=== PATIENT | male | born 1960 | race Two or more races ===

== ENCOUNTER 2017-03-17 21:45 | Inpatient (IN) | payer MEDICARE, MEDICAID ==
[~2017-03-17] VITALS: Ht 167.6 cm; Wt 74.1 kg
[2017-03-17 21:55] VITALS: BP 233/99
--- NOTE | 2017-03-17 22:04 | Emergency Room Report ---
History of Present Illness General Chief Complaint: Hypertension Source: Patient Present Illness HPI Patient presents with complaints of headache Patient finished his 3 hours of dialysis After that his blood pressure remained elevated and was sent to the emergency room Patient denies any chest pain or shortness of breath He reports his blood pressure has been high since yesterday He does hold his blood pressure medicine prior to dialysis Denies any flank pain The headache is somewhat diffuse and nonspecific denies any visual changes denies any neck pain or photophobia Allergies: Coded Allergies: ASPIRIN (Verified Allergy, Unknown, 03/17/17) Patient History Past Medical History: see triage record Past Surgical History: none Reviewed Nursing Documentation: PMH: Agreed, PSxH: Agreed Nursing Documentation-PMH Hx Hypertension: Yes - ESRD Hx Diabetes: Yes Review of Systems All Other Systems: negative except mentioned in HPI Physical Exam Vital Signs Date Time Temp Pulse Resp B/P Pulse Ox O2 Delivery O2 Flow Rate FiO2 03/17/17 21:38 96.6 68 16 225/98 100 Room Air Sp02 EP Interpretation: reviewed, normal General Appearance: well appearing, no apparent distress Head: normocephalic, atraumatic Eyes: bilateral eye EOMI, bilateral eye PERRL ENT: hearing grossly normal, normal pharynx, TMs + canals normal, uvula midline Neck: full range of motion, supple, no meningismus, no bony tend Respiratory: lungs clear, normal breath sounds, no rhonchi, no respiratory distress, no retraction, no accessory muscle use Cardiovascular #1: normal peripheral pulses, regular rate, rhythm, no edema, no gallop, no JVD, no murmur Gastrointestinal: normal bowel sounds, non tender, soft, no mass, no organomegaly, non-distended, no guarding, no hernia, no pulsatile mass, no rebound Genitourinary: no CVA tenderness Musculoskeletal: normal inspection Neurologic: oriented x3, responsive, cotton picker III-XII nml as tested, motor strength/ tone normal, sensory intact Psychiatric: mood/affect normal Skin: normal color, no rash, warm/dry, palpation normal, other - AV shunt left forearm Lymphatic: normal inspection, no adenopathy Procedures Critical Care Time Critical Care Time 40 minutes for multiple re\re evaluations Continued inpatient emergency room intervention Dangerous blood pressure, with possible end organ injury Not including any procedural time/ Medical Decision Making Diagnostic Impression: Primary Impression: Hypertensive emergency ER Course Patient is a fairly complex patient with multiple differential to consideration including but not limited to cardiac cardiopulmonary and vascular emergencies Has no obvious signs of any focal deficit CT imaging is held initially Patient did present dangerously hypertensive this required multiple interventions in the emergency room We were able to improve the blood pressure And patient otherwise admitted for continued inpatient care Labs Test 03/17/17 22:02 White Blood Count 5.6 K/UL (4.8-10.8) Red Blood Count 3.83 M/UL (4.70-6.10) Hemoglobin 12.3 G/DL (14.2-18.0) Hematocrit 37.5 % (42.0-52.0) Mean Corpuscular Volume 98 FL (80-99) Mean Corpuscular Hemoglobin 32.0 PG (27.0-31.0) Mean Corpuscular Hemoglobin Concent 32.7 G/DL (32.0-36.0) Red Cell Distribution Width 13.8 % (11.6-14.8) Platelet Count 206 K/UL (150-450) Mean Platelet Volume 5.9 FL (6.5-10.1) Neutrophils (%) (Auto) 69.0 % (45.0-75.0) Lymphocytes (%) (Auto) 19.0 % (20.0-45.0) Monocytes (%) (Auto) 7.7 % (1.0-10.0) Eosinophils (%) (Auto) 3.0 % (0.0-3.0) Basophils (%) (Auto) 1.3 % (0.0-2.0) Prothrombin Time 10.1 SEC (9.30-11.50) Prothromb Time International Ratio 1.0 (0.9-1.1) Activated Partial Thromboplast Time 31 SEC (23-33) Sodium Level 139 mEQ/L (135-145) Potassium Level 3.8 mEQ/L (3.4-4.9) Chloride Level 92 mEQ/L (98-107) Carbon Dioxide Level 30 mEQ/L (20-30) Anion Gap 17 (5-15) Blood Urea Nitrogen 27 mg/dL (7-23) Creatinine 5.2 mg/dL (0.7-1.2) Estimat Glomerular Filtration Rate 11.5 mL/min (>60) Glucose Level 106 mg/dL (74-106) Calcium Level 9.6 mg/dL (8.6-10.2) Total Bilirubin 0.5 mg/dL (0.0-1.2) Aspartate Amino Transf (AST/SGOT) 11 U/L (5-40) Alanine Aminotransferase (ALT/SGPT) 8 U/L (3-41) Alkaline Phosphatase 72 U/L (40-129) Total Creatine Kinase 102 U/L (38-174) Creatine Kinase MB 2.5 ng/mL (< 6.7) Creatine Kinase MB Relative Index 2.4 Troponin I < 0.30 ng/mL (<=0.30) Total Protein 8.3 g/dL (6.6-8.7) Albumin 5.2 g/dL (3.5-5.2) Globulin 3.1 g/dL Albumin/Globulin Ratio 1.6 (1.0-2.7) EKG Diagnostic Results Rate: normal Rhythm: NSR ST Segments: other - Nonspecific ST, T wave changes interventricular block, Rhythm Strip Diag. Results EP Interpretation: yes Rate: 77 Rhythm: NSR, no PVC's, no ectopy Chest X-Ray Diagnostic Results Chest X-Ray Ordered: Yes # of Views/Limited/Complete: 1 View Interpretation: no consolidation, no effusion, no pneumothorax, other - Cardiomegaly, left lower lobe haziness Indication: Chest Pain Impression: No acute disease Date Electronically Signed: Mar 18, 2017 Time Electronically Signed: 03:44 Interpreting ER Physician: Dr reed Last Vital Signs Date Time Temp Pulse Resp B/P Pulse Ox O2 Delivery O2 Flow Rate FiO2 03/17/17 21:38 96.6 68 16 225/98 100 Room Air Status: improved Disposition: ADMITTED INPATIENT Condition: Serious KELLEY REED D.O. Mar 17, 2017 22:04
[2017-03-17 22:19] LABS: BASOPHILS % (AUTO) 1.3 % (0.0-2.0); MEAN CORPUSCULAR HGB CONC 32.7 G/DL (32.0-36.0); MEAN CORPUSCULAR VOLUME 98 FL (80-99); MEAN PLATELET VOLUME 5.9 FL (6.5-10.1); MONOCYTES % (AUTO) 7.7 % (1.0-10.0); PLATELET COUNT 206 K/UL (150-450); RED BLOOD COUNT 3.83 M/UL (4.70-6.10); RED CELL DISTRIBUTION WIDTH 13.8 % (11.6-14.8); WHITE BLOOD COUNT 5.6 K/UL (4.8-10.8)
[2017-03-17 22:33] LABS: TROPONIN I < 0.30 ng/mL (<=0.30)
[2017-03-17 22:34] LABS: PROTHROMBIN TIME 10.1 SEC (9.30-11.50)
[2017-03-17 22:41] LABS: ALBUMIN/GLOBULIN RATIO 1.6 (1.0-2.7); CALCIUM 9.6 mg/dL (8.6-10.2); CREATININE 5.2 mg/dL (0.7-1.2); GLOMERULAR FILTRATION RATE 11.5 mL/min (>60); POTASSIUM 3.8 mEQ/L (3.4-4.9); TOTAL PROTEIN 8.3 g/dL (6.6-8.7)
[2017-03-17 22:51] LABS: CKMB 2.5 ng/mL (< 6.7)
[2017-03-17] MEDS ORDERED: FOLIC ACID1 MG ORAL (23:00)
[2017-03-17] MEDS ORDERED: FUROSEMIDE40 MG ORAL (23:00)
[2017-03-17] MEDS ORDERED: Miralax 17gm pkt ORAL PRN (23:00)
[2017-03-17] MEDS ORDERED: DuoNeb 0.5-3(2.5)mg/3ml neb HHN PRN (23:00)
[2017-03-17] MEDS ORDERED: LABETALOL HCL100 MG ORAL (23:00)
[2017-03-17] MEDS ORDERED: AMLODIPINE BESY10 MG ORAL (23:00)
[2017-03-17] MEDS ORDERED: RENVELA0.8 GM ORAL (23:00)
[2017-03-17] MEDS ORDERED: CALCIUM ACETAT667 M1 PO (23:00)
[2017-03-17] MEDS ORDERED: Enalaprilat 2.5mg/2ml Inj IV PRN (23:00)
[2017-03-17 23:03] VITALS: BP 236/99
[2017-03-17] MEDS ORDERED: Nitroglycerin 2% oint pkt TOPIC ONE (23:45)
[2017-03-17] MEDS ORDERED: Acetaminophen 500mg (ES) tab ORAL ONE (23:45)
[2017-03-18] VITALS (7 sets, daily range): BP systolic 139–206; BP diastolic 74–107
[2017-03-18 07:25] LABS: BASOPHILS % (AUTO) 1.7 % (0.0-2.0); EOSINOPHILS % (AUTO) 2.2 % (0.0-3.0); LYMPHOCYTES % (AUTO) 19.8 % (20.0-45.0); MEAN CORPUSCULAR HGB CONC 32.7 G/DL (32.0-36.0); MEAN CORPUSCULAR VOLUME 98 FL (80-99); MEAN PLATELET VOLUME 6.2 FL (6.5-10.1); MONOCYTES % (AUTO) 10.7 % (1.0-10.0); NEUTROPHILS % (AUTO) 65.7 % (45.0-75.0); PLATELET COUNT 219 K/UL (150-450); RED BLOOD COUNT 3.81 M/UL (4.70-6.10); RED CELL DISTRIBUTION WIDTH 13.6 % (11.6-14.8); WHITE BLOOD COUNT 5.8 K/UL (4.8-10.8)
[2017-03-18 07:53] LABS: CALCIUM 8.9 mg/dL (8.6-10.2); CREATININE 6.7 mg/dL (0.7-1.2); GLOMERULAR FILTRATION RATE 8.5 mL/min (>60); PHOSPHORUS 4.4 mg/dL (2.5-4.8); POTASSIUM 4.5 mEQ/L (3.4-4.9)
[2017-03-18 07:57] LABS: TROPONIN I < 0.30 ng/mL (<=0.30)
[2017-03-18] MEDS: Heparin 5000 units/ml inj SUBQ SCH ×2 (08:27→20:51)
--- NOTE | 2017-03-18 11:48 | Diagnostic Imaging Report ---
Indications: Chest pain Technique: Portable AP chest Findings: Comparison: None Lordotic projection limits evaluation. Cardiac silhouette appears upper limits of normal in size. Pulmonary vasculature appears within normal limits. Visualized portions of lungs and pleura are clear. IMPRESSION: Limited exam demonstrating no evidence of acute cardiopulmonary disease. Upright PA and lateral chest radiographs with better inspiratory effort and optimal technique recommended for more complete evaluation.
--- NOTE | 2017-03-18 12:50 | History and Physical ---
History of Present Illness General Date patient seen: Mar 18, 2017 Reason for Hospitalization: Hypertension Present Illness HPI 56 year old male with hx of htn and ESRF on HD presented with complaints of headache as he finished his 3 hours of dialysis his blood pressure remained elevated and was sent to the emergency room He reports his blood pressure has been high since yesterday. He does hold his blood pressure medicine prior to dialysis. His systolic BP was 220 in ER and was admitted to telemetry for further evaluation. Allergies: Coded Allergies: ASPIRIN (Verified Allergy, Unknown, 03/17/17) Medication History Scheduled Amlodipine Besylate* (Amlodipine Besylate*), 10 MG ORAL DAILY, (Reported) Folic Acid* (Folic Acid*), 1 MG ORAL DAILY, (Reported) Furosemide* (Lasix*), 40 MG ORAL DAILY, (Reported) Labetalol Hcl* (Normodyne*), 100 MG ORAL EVERY 12 HOURS, (Reported) Sevelamer Carbonate* (Renvela*), 800 MG ORAL THREE TIMES A DAY, (Reported) Miscellaneous Medications Calcium Acetate (Calcium Acetate), 667 MG PO, (Reported) Patient History Healthcare decision maker Resuscitation status Full Code Advanced Directive on File Past Medical/Surgical History Past Medical/Surgical History: (1) ESRD (end stage renal disease) (2) Hypertension Review of Systems All Other Systems: negative except mentioned in HPI Physical Exam General Appearance: WD/WN Lines, tubes and drains: peripheral HEENT: normocephalic, atraumatic Neck: non-tender, normal alignment Respiratory/Chest: chest wall non-tender, lungs clear Cardiovascular/Chest: normal peripheral pulses, normal rate Abdomen: normal bowel sounds, non tender Genitourinary/Rectal: normal genital exam Extremities: normal range of motion Last 24 Hour Vital Signs Date Time Temp Pulse Resp B/P Pulse Ox O2 Delivery O2 Flow Rate FiO2 03/18/17 12:21 97.7 74 18 146/79 97 Room Air 03/18/17 08:55 69 16 Room Air 21 03/18/17 08:29 166/83 03/18/17 08:24 97.0 73 18 166/83 95 Room Air 03/18/17 07:51 95 Nasal Cannula 4.0 03/18/17 04:14 97.0 73 18 139/74 97 Room Air 03/18/17 04:00 77 03/18/17 03:00 192/108 6/13/17 02:32 98.7 96 21 192/107 98 Room Air 03/18/17 01:48 96.6 98 14 206/98 96 Room Air 03/18/17 00:19 96.6 98 14 206/98 96 Room Air 03/17/17 23:50 209/91 03/17/17 23:06 236/99 03/17/17 23:03 96.6 66 17 236/99 99 Room Air 03/17/17 22:20 69 17 Room Air 03/17/17 22:10 237/96 03/17/17 21:55 96.6 68 12 233/99 99 Room Air 03/17/17 21:38 96.6 68 16 225/98 100 Room Air Intake and Output 03/17/17 03/18/17 19:00 07:00 Intake Total 240 ml Output Total 0 ml Balance 240 ml Intake Oral 240 ml Output Urine Total 0 ml Laboratory Tests Test 03/17/17 22:02 03/18/17 05:15 White Blood Count 5.6 K/UL (4.8-10.8) 5.8 K/UL (4.8-10.8) Red Blood Count 3.83 M/UL (4.70-6.10) L 3.81 M/UL (4.70-6.10) L Hemoglobin 12.3 G/DL (14.2-18.0) L 12.2 G/DL (14.2-18.0) L Hematocrit 37.5 % (42.0-52.0) L 37.2 % (42.0-52.0) L Mean Corpuscular Volume 98 FL (80-99) 98 FL (80-99) Mean Corpuscular Hemoglobin 32.0 PG (27.0-31.0) H 32.0 PG (27.0-31.0) H Mean Corpuscular Hemoglobin Concent 32.7 G/DL (32.0-36.0) 32.7 G/DL (32.0-36.0) Red Cell Distribution Width 13.8 % (11.6-14.8) 13.6 % (11.6-14.8) Platelet Count 206 K/UL (150-450) 219 K/UL (150-450) Mean Platelet Volume 5.9 FL (6.5-10.1) L 6.2 FL (6.5-10.1) L Neutrophils (%) (Auto) 69.0 % (45.0-75.0) 65.7 % (45.0-75.0) Lymphocytes (%) (Auto) 19.0 % (20.0-45.0) L 19.8 % (20.0-45.0) L Monocytes (%) (Auto) 7.7 % (1.0-10.0) 10.7 % (1.0-10.0) H Eosinophils (%) (Auto) 3.0 % (0.0-3.0) 2.2 % (0.0-3.0) Basophils (%) (Auto) 1.3 % (0.0-2.0) 1.7 % (0.0-2.0) Prothrombin Time 10.1 SEC (9.30-11.50) Prothromb Time International Ratio 1.0 (0.9-1.1) Activated Partial Thromboplast Time 31 SEC (23-33) Sodium Level 139 mEQ/L (135-145) 138 mEQ/L (135-145) Potassium Level 3.8 mEQ/L (3.4-4.9) 4.5 mEQ/L (3.4-4.9) Chloride Level 92 mEQ/L (98-107) L 93 mEQ/L (98-107) L Carbon Dioxide Level 30 mEQ/L (20-30) 29 mEQ/L (20-30) Anion Gap 17 (5-15) H 16 (5-15) H Blood Urea Nitrogen 27 mg/dL (7-23) H 32 mg/dL (7-23) H Creatinine 5.2 mg/dL (0.7-1.2) H 6.7 mg/dL (0.7-1.2) H Estimat Glomerular Filtration Rate 11.5 mL/min (>60) 8.5 mL/min (>60) Glucose Level 106 mg/dL (74-106) 106 mg/dL (74-106) Calcium Level 9.6 mg/dL (8.6-10.2) 8.9 mg/dL (8.6-10.2) Total Bilirubin 0.5 mg/dL (0.0-1.2) Aspartate Amino Transf (AST/SGOT) 11 U/L (5-40) Alanine Aminotransferase (ALT/SGPT) 8 U/L (3-41) Alkaline Phosphatase 72 U/L (40-129) Total Creatine Kinase 102 U/L (38-174) Creatine Kinase MB 2.5 ng/mL (< 6.7) Creatine Kinase MB Relative Index 2.4 Troponin I < 0.30 ng/mL (<=0.30) < 0.30 ng/mL (<=0.30) Total Protein 8.3 g/dL (6.6-8.7) Albumin 5.2 g/dL (3.5-5.2) 4.0 g/dL (3.5-5.2) Globulin 3.1 g/dL Albumin/Globulin Ratio 1.6 (1.0-2.7) Phosphorus Level 4.4 mg/dL (2.5-4.8) Height (Feet): 5 Height (Inches): 6.00 Weight (Pounds): 160 Medications Current Medications Medications (Trade) Dose Ordered Sig/Tay Route PRN Reason Start Time Stop Time Status Last Admin Dose Admin Acetaminophen (Tylenol) 650 mg Q4H PRN ORAL Fever 03/17/17 23:00 04/16/17 22:59 Albuterol/ Ipratropium (DuoNeb 0.5-3(2.5)mg/3ml) 3 ml EVERY 4 HOURS PRN HHN Shortness of Breath 03/17/17 23:00 03/22/17 22:59 Dextrose (Dextrose 50%) STAT PRN IV Hypoglycemia 03/17/17 23:00 04/16/17 22:59 Enalaprilat (Vasotec) 2.5 mg Q4H PRN IV sbp more than 200 03/17/17 23:00 04/16/17 22:59 Heparin Sodium (Porcine) (Heparin 5000 units/ml) 5,000 units EVERY 12 HOURS SUBQ 03/18/17 09:00 04/17/17 08:59 03/18/17 08:27 Hydralazine HCl (Apresoline) 20 mg Q4H PRN IV sbp more than 160 03/17/17 23:00 04/16/17 22:59 03/18/17 08:29 Ondansetron HCl (Zofran) 4 mg Q6H PRN IVP Nausea & Vomiting 03/17/17 23:00 04/16/17 22:59 Polyethylene Glycol (Miralax) 17 gm DAILYPRN PRN ORAL Constipation 03/17/17 23:00 04/16/17 22:59 Temazepam (Restoril) 15 mg HSPRN PRN ORAL Insomnia 03/17/17 23:00 03/24/17 22:59 Assessment/Plan Problem List: (1) Hypertensive encephalopathy ICD Codes: I67.4 - Hypertensive encephalopathy SNOMED: 09141025 (2) ESRD (end stage renal disease) ICD Codes: N18.6 - End stage renal disease SNOMED: 67161450 (3) Hypertensive emergency ICD Codes: I16.1 - Hypertensive emergency SNOMED: 193150176088339 Assessment/Plan tele monitoring BP control HD by acquisitions analyst symptomatic treatment CARLEY MOCTEZUMA Mar 18, 2017 12:50
[2017-03-18] MEDS: Calcium Acetate 667mg Tab ORAL SCH ×2 (14:46→20:49)
--- NOTE | 2017-03-18 15:45 | Consultation ---
Consult Note Consult Note asked to eval for dialysis management 3 years on HD Patient presents with complaints of headache Patient finished his 3 hours of dialysis After that his blood pressure remained elevated and was sent to the emergency room Patient denies any chest pain or shortness of breath He reports his blood pressure has been high since yesterday He does hold his blood pressure medicine prior to dialysis Denies any flank pain The headache is somewhat diffuse and nonspecific denies any visual changes denies any neck pain or photophobia Allergies: ASPIRIN (Verified Allergy, Unknown, 03/17/17) Patient interviewed and examined- data reviewed- discussed with RN . 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
[2017-03-18] MEDS: Lisinopril 10mg tab ORAL SCH (16:15)
--- NOTE | 2017-03-18 17:48 | Cardiology Report ---
APPROVED REPORT EXAM: Two-dimensional and M-mode echocardiogram with Doppler and color Doppler. INDICATION LV function M-Mode DIMENSIONS IVSd1.8 (0.7-1.1cm)Left Atrium (MM)5.2 (1.6-4.0cm) LVDd4.1 (3.5-5.6cm)Aortic Root3.9 (2.0-3.7cm) PWd1.9 (0.7-1.1cm)Aortic Cusp Exc.1.6 (1.5-2.0cm) LVDs2.7 (2.5-4.0cm) PWs2.7 cm technically difficult study Normal left ventricular chamber size, systolic function and wall motion to the extent visualized Left ventricular ejection fraction estimated to be 55-60 %. Moderate left ventricular hypertrophy. Small posterior hemodynamically insignificant pericardial effusion. Mild left atrial enlargement. Right cardiac chamber sizes are within normal limits. Focal aortic valve sclerosis with adequate cusp excursion. Thickened mitral valve leaflets with normal excursion. Mitral annulus and aortic root calcification. Pulmonic valve not well visualized. Normal tricuspid valve structure. IVC at normal size with physiologic collapse. POOR VALVULAR DETAIL A color flow and spectral Doppler study was performed and revealed: Trace aortic regurgitation. Mild mitral regurgitation. Mitral diastolic velocities suggest reduced left ventricular relaxation c/w mild LV diastolic dysfunction (Grade I). Trace to mild tricuspid regurgitation. Tricuspid systolic velocities suggests peak right ventricular systolic pressure of 31 mmHg. Pulmonic regurgitation present.
--- NOTE | 2017-03-18 18:10 | Cardiology Report ---
APPROVED REPORT EKG Measurement Heart [id number] Normal sinus rhythm Incomplete right bundle branch block Prolonged QT Abnormal ECG
--- NOTE | 2017-03-18 22:16 | Wound Care Consultation ---
Wound Assessment Wound Assessment : Wound Present on Admission: Yes New Wound: No Status Change of Wound: No Wound Location Body Site Modif: left Wound Location Body Site: toe - 1st and 2nd Wound Type: scab - dry Dario Test: Does not Dario Wound Thickness: Full Thickness Wound Length: 3.0 Wound Width: 2.0 Wound Depth: utd Percent of Wound Purple/Maroon: 100 Wound Drainage Amount: None Wound Drainage Odor: None/Absent Tissue Surrounding Wound: Intact Wound General Appearance: Reddened Wound Comment #1 Dry scabs on left 1st and 2nd anterior toes Recommendation -Keep clean and dry -Optimize nutrition -Offload both heels -Assess and f/u with MD for any changes GITA PRAJAPATI RN Mar 18, 2017 22:15
[2017-03-19] VITALS (7 sets, daily range): BP systolic 135–180; BP diastolic 86–93
[2017-03-19] MEDS: Calcium Acetate 667mg Tab ORAL SCH ×2 (06:02→14:15)
[2017-03-19 07:59] LABS: EOSINOPHILS % (AUTO) 1.5 % (0.0-3.0); LYMPHOCYTES % (AUTO) 17.1 % (20.0-45.0); MEAN CORPUSCULAR HEMOGLOBIN 31.3 PG (27.0-31.0); MEAN CORPUSCULAR VOLUME 98 FL (80-99); MEAN PLATELET VOLUME 6.4 FL (6.5-10.1); MONOCYTES % (AUTO) 11.7 % (1.0-10.0); NEUTROPHILS % (AUTO) 68.8 % (45.0-75.0); PLATELET COUNT 198 K/UL (150-450); RED BLOOD COUNT 3.95 M/UL (4.70-6.10); RED CELL DISTRIBUTION WIDTH 13.8 % (11.6-14.8)
[2017-03-19 08:19] LABS: THYROID STIMULATING HORMONE 2.57 uIU/mL (0.300-4.500)
[2017-03-19 08:20] LABS: ALBUMIN/GLOBULIN RATIO 1.3 (1.0-2.7); CALCIUM 9.1 mg/dL (8.6-10.2); CREATININE 9.2 mg/dL (0.7-1.2); CRP QUANT 1.9 mg/dL (< 0.5); GLOMERULAR FILTRATION RATE 5.9 mL/min (>60); MAGNESIUM 2.3 mg/dL (1.7-2.5); PHOSPHORUS 5.9 mg/dL (2.5-4.8); POTASSIUM 4.7 mEQ/L (3.4-4.9); TOTAL PROTEIN 7.4 g/dL (6.6-8.7); URIC ACID 6.6 mg/dL (3.0-7.5)
[2017-03-19 08:22] LABS: TROPONIN I < 0.30 ng/mL (<=0.30)
[2017-03-19 08:23] LABS: CHOLESTEROL/HDL RATIO 2.6 (3.3-4.4)
[2017-03-19] MEDS: Heparin 5000 units/ml inj SUBQ SCH (09:00)
[2017-03-19] MEDS: Lisinopril 10mg tab ORAL SCH (09:43)
--- NOTE | 2017-03-19 10:23 | General Progress Note ---
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 - plan: Adjust BP meds- HD today monitor labs per consultants Subjective ROS Limited/Unobtainable: No Allergies: Coded Allergies: ASPIRIN (Verified Allergy, Unknown, 03/17/17) Objective Last 24 Hour Vital Signs Date Time Temp Pulse Resp B/P Pulse Ox O2 Delivery O2 Flow Rate FiO2 03/19/17 09:43 165/86 03/19/17 09:41 74 165/86 03/19/17 09:40 74 165/86 03/19/17 07:55 70 16 Room Air 21 03/19/17 05:30 98.2 70 18 162/86 99 Room Air 03/19/17 04:05 180/90 03/19/17 04:00 71 03/19/17 04:00 98.2 74 18 180/90 98 Room Air 03/19/17 00:00 98.6 78 20 135/93 99 Room Air 03/19/17 00:00 73 03/18/17 20:49 73 179/88 03/18/17 20:00 73 03/18/17 20:00 98.2 75 20 179/88 98 Room Air 03/18/17 19:30 74 16 Room Air 21 03/18/17 16:15 158/86 03/18/17 16:00 79 03/18/17 15:39 98.1 79 18 158/86 95 Room Air 03/18/17 12:21 97.7 74 18 146/79 97 Room Air 03/18/17 12:00 75 Intake and Output 03/18/17 03/19/17 19:00 07:00 Intake Total 360 ml 80 ml Balance 360 ml 80 ml Intake Oral 360 ml 80 ml # Voids 1 # Bowel Movements 1 1 Laboratory Tests 03/19/17 07:20: White Blood Count 7.0, Red Blood Count 3.95L, Hemoglobin 12.4L, Hematocrit 38.6L , Mean Corpuscular Volume 98, Mean Corpuscular Hemoglobin 31.3H, Mean Corpuscular Hemoglobin Concent 32.0, Red Cell Distribution Width 13.8, Platelet Count 198, Mean Platelet Volume 6.4L, Neutrophils (%) (Auto) 68.8, Lymphocytes ( %) (Auto) 17.1L, Monocytes (%) (Auto) 11.7H, Eosinophils (%) (Auto) 1.5, Basophils (%) (Auto) 1.0, Sodium Level 137, Potassium Level 4.7, Chloride Level 90L, Carbon Dioxide Level 29, Anion Gap 18H, Blood Urea Nitrogen 51H, Creatinine 9.2H, Estimat Glomerular Filtration Rate 5.9, Glucose Level 121H, Hemoglobin A1c 5.0, Uric Acid 6.6, Calcium Level 9.1, Phosphorus Level 5.9H, Magnesium Level 2.3, Total Bilirubin 0.3, Gamma Glutamyl Transpeptidase 15, Aspartate Amino Transf (AST/SGOT) 8, Alanine Aminotransferase (ALT/SGPT) 6, Alkaline Phosphatase 59, Troponin I < 0.30, C-Reactive Protein, Quantitative 1.9H, Pro-B-Type Natriuretic Peptide 03971T, Total Protein 7.4, Albumin 4.3, Globulin 3.1, Albumin/Globulin Ratio 1.3, Triglycerides Level 111, Cholesterol Level 104, LDL Cholesterol 42L, HDL Cholesterol 40, Cholesterol/HDL Ratio 2.6L, Thyroid Stimulating Hormone (TSH) 2.570 Height (Feet): 5 Height (Inches): 6.00 Weight (Pounds): 163 General Appearance: no apparent distress Objective PE not changed LIZET GIBSON Mar 19, 2017 10:23
--- NOTE | 2017-03-19 12:16 | Pulmonology Progress Note ---
Assessment/Plan Problems: (1) Hypertensive encephalopathy (2) ESRD (end stage renal disease) (3) Hypertensive emergency Assessment/Plan improving HD today BP better may dc home with new antihypertensive meds Subjective ROS Limited/Unobtainable: No Constitutional: Reports: no symptoms HEENT: Repors: no symptoms Respiratory: Reports: no symptoms Allergies: Coded Allergies: ASPIRIN (Verified Allergy, Unknown, 03/17/17) Objective Last 24 Hour Vital Signs Date Time Temp Pulse Resp B/P Pulse Ox O2 Delivery O2 Flow Rate FiO2 03/19/17 09:43 165/86 03/19/17 09:41 74 165/86 03/19/17 09:40 74 165/86 03/19/17 08:00 71 03/19/17 08:00 98.1 72 20 165/86 97 Room Air 03/19/17 07:55 70 16 Room Air 21 03/19/17 05:30 98.2 70 18 162/86 99 Room Air 03/19/17 04:05 180/90 03/19/17 04:00 71 03/19/17 04:00 98.2 74 18 180/90 98 Room Air 03/19/17 00:00 98.6 78 20 135/93 99 Room Air 03/19/17 00:00 73 03/18/17 20:49 73 179/88 03/18/17 20:00 73 03/18/17 20:00 98.2 75 20 179/88 98 Room Air 03/18/17 19:30 74 16 Room Air 21 03/18/17 16:15 158/86 03/18/17 16:00 79 03/18/17 15:39 98.1 79 18 158/86 95 Room Air 03/18/17 12:21 97.7 74 18 146/79 97 Room Air Intake and Output 03/18/17 03/19/17 19:00 07:00 Intake Total 360 ml 80 ml Balance 360 ml 80 ml Intake Oral 360 ml 80 ml # Voids 1 # Bowel Movements 1 1 Objective General Appearance: WD/WN Lines, tubes and drains: peripheral HEENT: normocephalic, atraumatic Neck: non-tender, normal alignment Respiratory/Chest: chest wall non-tender, lungs clear Cardiovascular/Chest: normal peripheral pulses Abdomen: normal bowel sounds Genitourinary/Rectal: normal genital exam Extremities: trace edema Laboratory Tests 03/19/17 07:20: White Blood Count 7.0, Red Blood Count 3.95L, Hemoglobin 12.4L, Hematocrit 38.6L , Mean Corpuscular Volume 98, Mean Corpuscular Hemoglobin 31.3H, Mean Corpuscular Hemoglobin Concent 32.0, Red Cell Distribution Width 13.8, Platelet Count 198, Mean Platelet Volume 6.4L, Neutrophils (%) (Auto) 68.8, Lymphocytes ( %) (Auto) 17.1L, Monocytes (%) (Auto) 11.7H, Eosinophils (%) (Auto) 1.5, Basophils (%) (Auto) 1.0, Sodium Level 137, Potassium Level 4.7, Chloride Level 90L, Carbon Dioxide Level 29, Anion Gap 18H, Blood Urea Nitrogen 51H, Creatinine 9.2H, Estimat Glomerular Filtration Rate 5.9, Glucose Level 121H, Hemoglobin A1c 5.0, Uric Acid 6.6, Calcium Level 9.1, Phosphorus Level 5.9H, Magnesium Level 2.3, Total Bilirubin 0.3, Gamma Glutamyl Transpeptidase 15, Aspartate Amino Transf (AST/SGOT) 8, Alanine Aminotransferase (ALT/SGPT) 6, Alkaline Phosphatase 59, Troponin I < 0.30, C-Reactive Protein, Quantitative 1.9H, Pro-B-Type Natriuretic Peptide 14639S, Total Protein 7.4, Albumin 4.3, Globulin 3.1, Albumin/Globulin Ratio 1.3, Triglycerides Level 111, Cholesterol Level 104, LDL Cholesterol 42L, HDL Cholesterol 40, Cholesterol/HDL Ratio 2.6L, Thyroid Stimulating Hormone (TSH) 2.570 Current Medications Medications (Trade) Dose Ordered Sig/Tay Route PRN Reason Start Time Stop Time Status Last Admin Dose Admin Acetaminophen (Tylenol) 650 mg Q4H PRN ORAL Fever 03/17/17 23:00 04/16/17 22:59 03/18/17 18:38 Albuterol/ Ipratropium (DuoNeb 0.5-3(2.5)mg/3ml) 3 ml EVERY 4 HOURS PRN HHN Shortness of Breath 03/17/17 23:00 03/22/17 22:59 Amlodipine Besylate (Norvasc) 10 mg DAILY ORAL 03/19/17 09:00 04/18/17 08:59 03/19/17 09:41 Calcium Acetate (Phoslo) 667 mg EVERY 8 HOURS ORAL 03/18/17 14:00 04/17/17 13:59 03/19/17 06:02 Clonidine HCl (Catapres) 0.1 mg Q4H PRN ORAL bp over 165 syst 03/18/17 15:45 04/17/17 15:44 03/19/17 04:05 Dextrose (Dextrose 50%) STAT PRN IV Hypoglycemia 03/17/17 23:00 04/16/17 22:59 Folic Acid (Folate) 1 mg DAILY ORAL 03/19/17 09:00 04/18/17 08:59 03/19/17 09:44 Heparin Sodium (Porcine) (Heparin 5000 units/ml) 5,000 units EVERY 12 HOURS SUBQ 03/18/17 09:00 04/17/17 08:59 03/18/17 20:51 Labetalol HCl (Normodyne) 100 mg EVERY 12 HOURS ORAL 03/18/17 21:00 04/17/17 20:59 03/19/17 09:40 Lisinopril (Zestril) 10 mg Q12HR ORAL 03/19/17 21:00 04/18/17 20:59 Ondansetron HCl (Zofran) 4 mg Q6H PRN IVP Nausea & Vomiting 03/17/17 23:00 04/16/17 22:59 Polyethylene Glycol (Miralax) 17 gm DAILYPRN PRN ORAL Constipation 03/17/17 23:00 04/16/17 22:59 Sevelamer Carbonate (Renvela) 800 mg THREE TIMES A DAY ORAL 03/18/17 14:00 04/17/17 13:59 03/19/17 09:41 Temazepam (Restoril) 15 mg HSPRN PRN ORAL Insomnia 03/17/17 23:00 03/24/17 22:59 CARLEY MOCTEZUMA Mar 19, 2017 12:16
[2017-03-19] MEDS ORDERED: Lisinopril 10mg tab ORAL SCH (18:00)
--- NOTE | 2017-03-20 09:56 | Discharge Summary ---
Discharge Summary Hospital Course Date of Admission Mar 17, 2017 at 22:43 Date of Discharge Mar 19, 2017 at 17:55 Admitting Diagnosis hypertensive malignancy MAKEDA Doss is a 56 year old male who was admitted on Mar 17, 2017 at 22: 43 for Hypertensive Malignancy Hospital Course [id number] Discharge Discharge Disposition Patient was discharged to Home with Home Health(06) Discharge Diagnoses: Muriel Cruz NP Mar 20, 2017 09:56
--- NOTE | 2017-03-20 22:30 | Discharge Summary 2 SIG ---
DATE OF ADMISSION: 03/17/2017 DATE OF DISCHARGE: 03/19/2017 BAKER PIE: Misael Nur M.D. BRIEF HOSPITAL COURSE: The patient is a 56-year-old male with history of hypertension and end-stage renal failure on hemodialysis, who presented to ED with complaints of headache. He finished three hours of dialysis and blood pressure remained elevated. He was sent to the emergency room. On evaluation at ED, systolic blood pressure was 225. He did not present with any obvious signs of focal neurologic deficit. He was admitted for further evaluation. EKG showed normal sinus rhythm with nonspecific ST to T-wave changes. He was followed by Dr. Nur. The patient was given lisinopril, Norvasc, labetalol and p.r.n. clonidine. He received inpatient hemodialysis. Echocardiogram showed ejection fraction of 55% to 60%. Blood pressure improved. He was eventually discharged home to continue amlodipine and labetalol. DISCHARGE DISPOSITION: The patient was discharged home with home health. FINAL DIAGNOSES: 1. Hypertensive emergency. 2. End-stage renal disease, on hemodialysis. 3. Legally blind. 4. Acute hypertensive encephalopathy. Javon Perez M.D. I have been assigned to dictate discharge summary on this account and I was not involved in the patient's management. Muriel Cruz N.P. DR: LISSA JOB#: [id number] CC: [email or web address]
== END 2017-03-19 17:55 | disposition home health service (06) | DRG 77 ==
LOC: ENRESERVDT → ENRESERVTM → EDBD 21:45 → EMR 22:41 → 2E 22:43 → EDBEDREQ 22:51
PROC: 5A1D00Z (ICD-10-PCS; principal; 2017-03-19)
DX: I67.4 Hypertensive encephalopathy (principal); N18.6 End stage renal disease; I12.0 Hypertensive chronic kidney disease with stage 5 chronic kidney disease or end stage renal disease; I16.1 Hypertensive emergency; Z99.2 Dependence on renal dialysis; H54.8 Legal blindness, as defined in USA
CPT/HCPCS: 36415; 71010; 80048; 80053; 80061; 80069; 82550; 82553; 82977; 83036; 83735; 83880; 84100; 84443; 84484; 84550; 85025; 85610; 85730; 86140; 87081; 93005; 93306; 94664; 94760